=== PATIENT | female | born 1940 | race Caucasian/White ===

== ENCOUNTER 2018-07-10 18:40 | Inpatient (IN) | payer OTHER, BC ==
[~2018-07-10] VITALS: Ht 165.1 cm; Wt 99.6 kg
[~2018-07-10 18:40] MED LIST: AMIODARONE HCL400 MG PO; AMLODIPINE BESY10 MG PO; ASPIR-LOW81 MG PO; ASPIRIN81 M2 PO; BENICAR40 MG PO; CARDIZEM CD,CA180 MG PO; CARDIZEM CD180 MG PO; CYMBALTA60 MG PO; DULOXETINE HCL60 MG PO; FISH OIL 1,0001 EAC7 PO; FUROSEMIDE40 MG PO; OMEPRAZOLE40 M1 PO; PRADAXA150 MG PO; TYLENOL ARTHRI650 MG PO; VENTOLIN HFA18 GM IH; VITAMIN D2000 UNIT PO
[2018-07-10 20:35] LABS: HEMATOCRIT 39.5 % (36.0-46.0); HEMOGLOBIN 13.5 G/DL (11.9-15.5); MCH 33.3 PG (29.0-34.0); MCHC 34.2 G/DL (30.0-36.0); MCV 97.3 FL (83-99); PLATELET COUNT 143 K/uL (156-360); RBC DIS.WIDTH-CV 13.2 % (11.8-14.6); RBC DIS.WIDTH-SD 47.2 % (39-53); RED BLOOD COUNT 4.06 M/uL (3.80-5.20); WHITE BLOOD COUNT 7.9 K/uL (4.1-10.2)
[2018-07-10 20:42] LABS: INTER. NORMALIZED RATIO 1.2
[2018-07-10 20:43] LABS: ALBUMIN 3.9 g/dL (3.2-4.8); CHLORIDE 105 mEq/L (99-109); POTASSIUM 3.9 mEq/L (3.7-5.4); SODIUM 140 mEq/L (136-147)
[2018-07-10 20:44] LABS: PTT 27.2 SEC (25-37)
[2018-07-10 20:45] LABS: GLUCOSE 128 mg/dL (70-99)
[2018-07-10 20:46] LABS: TOTAL PROTEIN 6.5 g/dL (6.4-8.3)
[2018-07-10 20:47] LABS: TOTAL BILIRUBIN 0.4 mg/dL (0.0-1.0)
[2018-07-10 20:49] LABS: ALKALINE PHOSPHATASE 66 IU/L (3-129); CREATININE 0.9 mg/dL (0.6-1.3); GFR ESTIMATE (CALCULATED) > 59 mL/min/
[2018-07-10 20:50] LABS: UREA NITROGEN (BUN) 26 mg/dL (9-23)
[2018-07-10 20:51] LABS: AST (GOT) 39 IU/L (2-34)
[2018-07-10 20:52] LABS: ALT (GPT) 43 IU/L (3-49)
[2018-07-10] MEDS ORDERED: ELIQUIS5 MG PO (21:31)
[2018-07-10] MEDS ORDERED: VITAMIN B-121000 MC1 SL (21:32)
[2018-07-10] MEDS ORDERED: WOMEN'S MULTI200 MCG PO (21:32)
[2018-07-10] MEDS ORDERED: PROBIOTIC1 EAC7 PO (21:32)
[2018-07-10] MEDS ORDERED: FLONASE16 G1 BOTH NARES (21:33)
[2018-07-10] MEDS ORDERED: FLECAINIDE ACET50 MG PO (21:33)
[2018-07-10] MEDS ORDERED: FLOVENT 11120 INHALA IH (21:33)
[2018-07-11 02:41] LABS: APPEARANCE CLEAR ((CLEAR)); BILIRUBIN NEGATIVE; BLOOD MODERATE; COLOR YELLOW ((YELLOW)); GLUCOSE (STRIP) NEGATIVE; KETONES 5; LEUKOCYTES TRACE; NITRITE NEGATIVE; PROTEIN (STRIP) 30; SPECIFIC GRAVITY 1.027 (1.000-1.030); UROBILINOGEN 0.2 MG/DL (0.2-1.0)
[2018-07-11 02:48] VITALS: BP 132/68
[2018-07-11 02:52] LABS: BACTERIA NONE SEEN /HPF; EPITHELIAL CELLS 1+ /HPF; HYALINE CASTS 0-5 /LPF; MUCUS TRACE /LPF; RED BLOOD CELLS TNTC /HPF (0-5); UCUL ADDED? YES
[2018-07-11 07:45] VITALS: BP 111/61
[2018-07-11 10:23] LABS: CHLORIDE 106 MEQ/L (99-109); POTASSIUM 4.2 MEQ/L (3.7-5.4); SODIUM 140 MEQ/L (136-147)
[2018-07-11 10:29] LABS: CREATININE 0.8 MG/DL (0.6-1.3); GFR ESTIMATE (CALCULATED) > 59 mL/min/; GLUCOSE 148 mg/dL (70-99); UREA NITROGEN (BUN) 21 mg/dL (9-23)
[2018-07-11 10:32] LABS: HEMOGLOBIN 11.6 G/DL (11.9-15.5); MCH 32.5 PG (29.0-34.0); MCHC 33.1 G/DL (30.0-36.0); PLATELET COUNT 130 K/uL (156-360); RBC DIS.WIDTH-CV 13.3 % (11.8-14.6); RBC DIS.WIDTH-SD 47.8 % (39-53); RED BLOOD COUNT 3.57 M/uL (3.80-5.20); WHITE BLOOD COUNT 6.4 K/uL (4.1-10.2)
[2018-07-11 15:25] VITALS: BP 189/95
[2018-07-11 15:52] VITALS: BP 127/67
[2018-07-11 20:13] VITALS: BP 137/65
[2018-07-11 23:59] VITALS: BP 121/63
[2018-07-12 04:20] VITALS: BP 115/56
[2018-07-12 06:45] LABS: HEMATOCRIT 33.9 % (36.0-46.0); HEMOGLOBIN 11.2 G/DL (11.9-15.5); MCH 32.7 PG (29.0-34.0); MCV 99.1 FL (83-99); PLATELET COUNT 126 K/uL (156-360); RBC DIS.WIDTH-CV 13.2 % (11.8-14.6); RED BLOOD COUNT 3.42 M/uL (3.80-5.20); WHITE BLOOD COUNT 5.8 K/uL (4.1-10.2)
[2018-07-12 07:02] LABS: CHLORIDE 105 MEQ/L (99-109); GFR ESTIMATE (CALCULATED) 57 mL/min/; GLUCOSE 130 mg/dL (70-99); POTASSIUM 4.1 MEQ/L (3.7-5.4); SODIUM 140 MEQ/L (136-147); UREA NITROGEN (BUN) 22 mg/dL (9-23)
[2018-07-12 07:44] VITALS: BP 121/60
[2018-07-12 11:29] VITALS: BP 125/88
[2018-07-12 15:46] VITALS: BP 126/60
[2018-07-13 04:00] VITALS: BP 117/58
[2018-07-13 06:43] LABS: HEMATOCRIT 29.6 % (36.0-46.0); HEMOGLOBIN 9.7 G/DL (11.9-15.5)
[2018-07-13 07:58] VITALS: BP 111/57
[2018-07-13 12:10] VITALS: BP 129/60
[2018-07-13 16:43] VITALS: BP 115/58
[2018-07-13 19:18] VITALS: BP 123/58
[2018-07-13 23:05] VITALS: BP 126/62
[2018-07-14 04:00] VITALS: BP 136/74
[2018-07-14 07:50] VITALS: BP 130/60
[2018-07-14 08:30] LABS: HEMATOCRIT 27.8 % (36.0-46.0); HEMOGLOBIN 9.1 G/DL (11.9-15.5); MCHC 32.7 G/DL (30.0-36.0); MCV 100.7 FL (83-99); PLATELET COUNT 130 K/uL (156-360); RBC DIS.WIDTH-CV 13.2 % (11.8-14.6); RBC DIS.WIDTH-SD 48.1 % (39-53); RED BLOOD COUNT 2.76 M/uL (3.80-5.20); WHITE BLOOD COUNT 6.1 K/uL (4.1-10.2)
[2018-07-14 11:13] VITALS: BP 125/59
[2018-07-14] MEDS ORDERED: POLYETHYLENE GL17 GM PO (11:32)
[2018-07-14] MEDS ORDERED: SENNA PLUS TAB1 EACH PO (11:32)
[2018-07-14] MEDS ORDERED: HYDROCODON-ACE1 EAC7 PO (11:34)
== END 2018-07-14 14:25 | DRG 481 ==
LOC: EME → EDBD 18:40 → 3EAST 07-11 00:41 → EDOF 07-11 00:41 → ENRESERV 07-11 00:42 → 3EAST 07-11 02:33
PROVIDERS: Emergency Medicine; Hospitalist; Internal Medicine; Orthopaedic Surgery; Physician Assistant
PROC: 5A09357 Assistance with Respiratory Ventilation, Less than 24 Consecutive Hours, Continuous Positive Airway Pressure (ICD-10-PCS; 2018-07-11)
PROC: 0QSB04Z Reposition Right Lower Femur with Internal Fixation Device, Open Approach (ICD-10-PCS; principal; 2018-07-13)
DX: S72.451A Displaced supracondylar fracture without intracondylar extension of lower end of right femur, initial encounter for closed fracture (principal); M97.11XA Periprosthetic fracture around internal prosthetic right knee joint, initial encounter; W01.0XXA Fall on same level from slipping, tripping and stumbling without subsequent striking against object, initial encounter; Y92.007 Garden or yard of unspecified non-institutional (private) residence as the place of occurrence of the external cause; R09.02 Hypoxemia; N28.89 Other specified disorders of kidney and ureter; R31.9 Hematuria, unspecified; I48.91 Unspecified atrial fibrillation; G47.33 Obstructive sleep apnea (adult) (pediatric); M79.7 Fibromyalgia; K21.9 Gastro-esophageal reflux disease without esophagitis; R04.0 Epistaxis; E66.01 Morbid (severe) obesity due to excess calories; I11.0 Hypertensive heart disease with heart failure; I50.32 Chronic diastolic (congestive) heart failure; I44.7 Left bundle-branch block, unspecified; I48.2 Chronic atrial fibrillation; K76.0 Fatty (change of) liver, not elsewhere classified; F41.9 Anxiety disorder, unspecified; G43.909 Migraine, unspecified, not intractable, without status migrainosus; N20.1 Calculus of ureter; Z96.653 Presence of artificial knee joint, bilateral; R29.6 Repeated falls; Z91.041 Radiographic dye allergy status; Z79.01 Long term (current) use of anticoagulants; Z88.5 Allergy status to narcotic agent; Z79.82 Long term (current) use of aspirin; Z88.1 Allergy status to other antibiotic agents; Z68.36 Body mass index [BMI] 36.0-36.9, adult
CPT/HCPCS: 70450; 71045; 73552; 73564; 74176; 74183; 76000; 80048; 80053; 81003; 82948; 85014; 85018; 85027; 85610; 85730; 86850; 86900; 86901; 87086; 87641; 93005; 93306; 94640; 94799; 99281; 99285; C1713; J0690; J1170; J1885; J2060; J3010; J3370; J7030